=== PATIENT | female | born 1960 | race Caucasian/White ===

== ENCOUNTER → 2020-06-02 08:14 | Outpatient (CLI) | payer BC, SELFPAY ==
--- NOTE | ~2020-06-02 | CT_ITS ---
EXAMINATION: CT lung screening DATE: 06/02/2020 08:39 INDICATION: Personal history of tobacco dependence, current smoker with 30 pack year history TECHNIQUE: Computed tomography (CT) of the chest was performed without intravenous contrast. The dose -length product (DLP) was 136.59 mGy-cm. 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 COMPARISON: 07/16/2018 FINDINGS: There is mild emphysema. No new or suspicious pulmonary nodules are identified. There is no pleural effusion or pneumothorax. No pathologically enlarged thoracic lymph nodes are identified. Th e heart size is normal. There is mild thoracic spondylosis. IMPRESSION: 1. Lung-RADS category 1: Negative. Continue annual screening with noncontrast low-dose chest CT in 12 months. Reviewed, dictated and finalized at location A. IMPRESSION: 1. Lung-RADS category 1: Negative. Continue annual screening with noncontrast l ow-dose chest CT in 12 months.
--- NOTE | ~2020-06-02 | XR_ITS ---
XR foot RT min 3V DATE: 06/02/2020 08:39 INDICATION: Left foot pain, heel pain. No known injury. TECHNIQUE: 4 views COMPARISON: None FINDINGS: Mild plantar calcaneal enthesopathy. Mild distal Achilles tendon calcifications. No fracture, dislocation, periosteal reaction or bone destruction is detected. Os subfibular artery, anatomic variant. Os tibiale externum, normal variant. IMPRESSION: Mild plantar calcaneal enthesopathy Mild distal Achilles tendon calcifications Reviewed, dictated and finalized at location B.
== END ==
PROVIDERS: PCP Internal Medicine; Visit Provider Internal Medicine
DX: Z12.2 Encounter for screening for malignant neoplasm of respiratory organs (principal); Z87.891 Personal history of nicotine dependence; M77.31 Calcaneal spur, right foot
CPT/HCPCS: 73630; G0297

== ENCOUNTER 2020-06-08 08:33 | Outpatient (CLI) | payer BC, SELFPAY ==
--- NOTE | ~2020-06-08 | XR_ITS ---
EXAMINATION: XR UGIAC w barium swallow EXAM DATE: 06/08/2020 09:17 INDICATION: Dysphagia. Neck fullness. TECHNIQUE: Standard single and double contrast barium esophagram and upper GI examination was perform ed. The DAP for this procedure was 1.9 Gycm2. There is no prior study for comparison. FINDINGS: The pharynx is symmetric and without evidence of mass lesion or mucosal irregularity. Ther e is no esophageal stricture, diverticulum or mass identified. Gastroesophageal junction is normal i n appearance. Reflux was not demonstrated during this examination. The stomach has a normal appearance without evidence of mass lesion, ulceration or filling defect. T here is normal rugal fold pattern. The duodenum and duodenal sweep are normal in appearance. IMPRESSION: Normal exam. Reviewed, dictated and finalized at location A. IMPRESSION: Normal exam.
== END 2020-06-08 08:34 | disposition home or self-care (01) ==
PROVIDERS: PCP Internal Medicine; Visit Provider Internal Medicine
DX: R13.10 Dysphagia, unspecified (principal)
CPT/HCPCS: 74246

== ENCOUNTER 2020-06-13 13:31 | Outpatient (CLI) | payer BC, SELFPAY ==
--- NOTE | ~2020-06-13 | US_ITS ---
EXAMINATION: US thyroid DATE: 06/13/2020 14:17 INDICATION: Dysphagia. . TECHNIQUE: Multiple ultrasound images of the thyroid were obtained. COMPARISON: None. FINDINGS: The right thyroid lobe measures 5.8 x 1.7 x 2.0 cm. The left thyroid lobe measures 5.7 x 1.7 x 1.8 c m. Wider than tall 1.5 x 1.1 x 1.3 cm solid hypoechoic nodule with smooth margins and without echoge chantal foci at the inferior left thyroid macro (TI-RADS 4, moderately suspicious , FNA if >=1.5 cm, deepa al followup is >1 cm). There are few additional similar-appearing nodules the next largest measuring 1.1 cm in maximal diameter at the deep left thyroid lobe with several additional subcentimeter nodule s scattered throughout the left and right thyroid lobes. There is normal echotexture, echogenicity an d vascular flow throughout the surrounding thyroid gland. IMPRESSION: 1. Multinodular goiter. The largest 1.5 cm TI RADS 4 nodule at the inferior left thyroid meets consen kendy criteria for ultrasound guided biopsy which would be recommended. Reviewed, dictated and finalized at location A. IMPRESSION: 1. Multinodular goiter. The largest 1.5 cm TI RADS 4 nodule at the inferior lef t thyroid meets consensus criteria for ultrasound guided biopsy which would be recommended.
== END 2020-06-13 13:32 | disposition home or self-care (01) ==
PROVIDERS: PCP Internal Medicine; Visit Provider Internal Medicine
DX: M79.89 Other specified soft tissue disorders (principal); R13.10 Dysphagia, unspecified; E04.2 Nontoxic multinodular goiter
CPT/HCPCS: 76536

== ENCOUNTER 2020-06-29 13:17 | Outpatient (CLI) | payer BC, SELFPAY ==
--- NOTE | ~2020-06-29 | US_ITS ---
EXAMINATION: US FNA w image guidance DATE: 06/29/2020 14:18 INDICATION: Left thyroid nodule. TECHNIQUE: The procedure and its benefits, risks, and benefits were discussed with the patient. Risks specifical ly discussed included bleeding. The patient verbalized understanding of the risks and agreed to proce ed. The neck was prepped and draped in the usual sterile manner. 1% lidocaine was used for local ane sthesia. 5 passes were made with a 25G needle into the lesion. Appropriate needle location was docu mented with continuous sonographic guidance. There were no immediate complications. The patient unde rstood to call the ordering physician for results after a week and a half and verbalized that underst anding. FINDINGS: Grayscale ultrasound images demonstrate needles advanced into a 1.5 cm nodule in inferior left thyroi d lobe for biopsy. IMPRESSION: 1. Ultrasound-guided fine needle aspiration of a left thyroid nodule. Reviewed, dictated and finalized at location A.
== END 2020-06-29 13:18 | disposition home or self-care (01) ==
PROVIDERS: PCP Internal Medicine; Visit Provider Otolaryngology
DX: E04.1 Nontoxic single thyroid nodule (principal)
CPT/HCPCS: 10005; 88173; 88305

== ENCOUNTER 2021-02-05 14:10 | Outpatient (CLI) | payer BC, SELFPAY ==
--- NOTE | ~2021-02-05 | XR_ITS ---
EXAMINATION: XR chest 2V 02/05/2021 14:28 INDICATION: Productive cough PROCEDURE: PA and lateral views of the chest COMPARISON: No prior studies for comparison. FINDINGS: The lungs are clear. The cardiomediastinal silhouette is within normal limits. There are no pleural effusions. There is no pneumothorax suspected. IMPRESSION: 1: NO ACUTE CARDIOPULMONARY DISEASE. Reviewed, dictated and finalized at location B.
== END 2021-02-05 14:11 | disposition home or self-care (01) ==
PROVIDERS: PCP Internal Medicine; Visit Provider Internal Medicine
DX: R05 Cough (principal)
CPT/HCPCS: 71046

== ENCOUNTER 2021-08-06 09:44 | Outpatient (CLI) | payer BC, SELFPAY ==
--- NOTE | ~2021-08-06 | MM_ITS ---
EXAMINATION: MM screening [facility] BI w avis HISTORY: Screening TECHNIQUE: Craniocaudal and mediolateral oblique 3-D tomosynthesis images were obtained and synthetic 2-D images were generated. CAD analysis was submitted and interpreted. COMPARISON: Comparison to multiple prior studies sequentially, with oldest reviewed study dated 11/2012. BREAST PARENCHYMAL COMPOSITION: There are scattered areas of fibroglandular density. FINDINGS: There is no evidence of suspicious mass, calcification, or architectural distortion to sugg est malignancy in either breast. There has been no suspicious interval change. IMPRESSION: 1. No mammographic evidence of malignancy. 2. Recommend routine screening mammography in one year. BI-RADS Category 1: Negative Reviewed, dictated and finalized at location A.
== END 2021-08-06 09:45 | disposition home or self-care (01) ==
LOC: ANHIMG 09:45
PROVIDERS: PCP Internal Medicine; Visit Provider Internal Medicine
DX: Z12.31 Encounter for screening mammogram for malignant neoplasm of breast (principal)
CPT/HCPCS: 77063; 77067

== ENCOUNTER 2022-03-05 14:43 | Outpatient (CLI) | payer BC, SELFPAY ==
--- NOTE | ~2022-03-05 | CT_ITS ---
EXAMINATION: CT lung screening DATE: 03/05/2022 15:01 INDICATION: Personal history of nicotine dependence, current smoker with 30 pack year history TECHNIQUE: Computed tomography (CT) of the chest was performed without intravenous contrast. The dose -length product (DLP) was 96.32 mGy-cm. Automated exposure control and iterative reconstruction techn [employer] were employed. COMPARISON: 06/02/2020 FINDINGS: There is mild emphysema. Scarring is noted in the right lung apex. No suspicious pulmonary nodules are identified. The lungs are free of acute opacities. There is no pleural effusion or pneumo thorax. No pathologically enlarged thoracic lymph nodes are identified. The heart size is normal. The re is mild thoracic spondylosis. IMPRESSION: 1. Lung-RADS category 1: Negative. Continue annual screening with noncontrast low-dose chest CT in 12 months. Reviewed, dictated and finalized at location F. IMPRESSION: 1. Lung-RADS category 1: Negative. Continue annual screening with noncontrast l ow-dose chest CT in 12 months.
== END 2022-03-05 14:44 | disposition home or self-care (01) ==
LOC: ANHIMG 14:47
PROVIDERS: PCP Internal Medicine; Visit Provider Internal Medicine
DX: Z12.2 Encounter for screening for malignant neoplasm of respiratory organs (principal); Z87.891 Personal history of nicotine dependence
CPT/HCPCS: 71271

== ENCOUNTER → 2022-12-10 15:06 | Outpatient (CLI) | payer BC, SELFPAY ==
--- NOTE | ~2022-12-10 | MM_ITS ---
EXAMINATION: MM screening [facility] w avis HISTORY: Screening TECHNIQUE: Craniocaudal and mediolateral oblique 3-D tomosynthesis images were obtained and synthetic 2-D images were generated. CAD analysis was submitted and interpreted. COMPARISON: Comparison to multiple prior studies sequentially, with oldest reviewed study dated 11/2012. BREAST PARENCHYMAL COMPOSITION: There are scattered areas of fibroglandular density. FINDINGS: There is no evidence of suspicious mass, calcification, or architectural distortion to sugg est malignancy in either breast. There has been no suspicious interval change. IMPRESSION: 1. No mammographic evidence of malignancy. 2. Recommend routine screening mammography in one year. BI-RADS Category 1: Negative Reviewed, dictated and finalized at location A. 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
== END ==
PROVIDERS: PCP Internal Medicine; Visit Provider Obstetrics & Gynecology
DX: Z12.31 Encounter for screening mammogram for malignant neoplasm of breast (principal)
CPT/HCPCS: 77063; 77067

== ENCOUNTER → 2023-12-05 09:18 | Outpatient (CLI) | payer BC, SELFPAY ==
--- NOTE | ~2023-12-05 | CT_ITS ---
CT Scan of the Chest without Contrast: Clinical Indication: Lung cancer screening, personal history of nicotine dependence Technique: Contiguous sections were acquired throughout the chest without intravenous contrast. Dose reduction technique was used on this scan by utilizing automated exposure control and iterative recon struction technique. The dose-length product (DLP) was 122.73 mGy-cm. COMPARISON: 03/05/2022 Findings: There is no evidence of any significant mediastinal, hilar or axillary lymphadenopathy. The mediastin al soft tissues appear normal. There is no evidence of pleural or pericardial effusion. The lungs are clear. No pulmonary nodules or infiltrates are noted. Images through the upper abdomen reveal no abnormalities. Impression: Lung RADS 1: Negative. 12 month follow-up screening CT advised. Reviewed, dictated and finalized at location . 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 12 month follow-up screening CT advised.
== END ==
PROVIDERS: PCP Internal Medicine; Visit Provider Internal Medicine
DX: Z12.2 Encounter for screening for malignant neoplasm of respiratory organs (principal); Z87.891 Personal history of nicotine dependence
CPT/HCPCS: 71271

== ENCOUNTER 2024-02-04 08:38 | Outpatient (CLI) | payer BC, SELFPAY ==
--- NOTE | ~2024-02-04 | DEXA_ITS ---
Bone Density Report Name: MK TEAGUE Age: 63 Sex: Female Ethnicity: White Date of : 1960 Indication: postmenopausal; screening for osteoporosis; Referring Provider: MARIE HANKS Study: Bone densitometry was performed. Exam Date: February 04, 2024 Accession number: [id number] Bone Density: Region BMD T-score Z-score Classification AP Spine (L1-L4) 1.068 0.2 1.8 Normal Femoral Neck (Left) 0.757 -0.8 0.6 Normal Total Hip (Left) 0.903 -0.3 0.8 Normal Femoral Neck (Right) 0.701 -1.3 0.1 Osteopenia Total Hip (Right) 0.858 -0.7 0.4 Normal Total Hip Mean 0.881 -0.5 0.6 Normal World Health Organization criteria for BMD impression classify patients as: Normal (T-score at or above -1.0), Osteopenia (T-score between -1.0 and -2.5), or Osteoporosis (T-score at or below -2.5). 10-year Fracture Risk(1): Major Osteoporotic Fracture 8.1% Hip Fracture 0.7% Reported Risk Factors: [place] (), Neck BMD=0.701, BMI=27.5 (1) FRAX(R) Version 3.08. Fracture probability calculated for an untreated patient. Fracture probability may be lower if the patient has received treatment. Clinical Information Provided by Patient: Has used the following medications: Vitamin D Patient maximum height was 67.0 Menopause Age: 50 No regular weight bearing exercise Drinks caffeinated beverages Onset of menses at age 12 Number of children 4 Impression: The patient has low bone mass, based on the Right Femoral Neck T-score. The patient has an estimated ten-year risk of hip fracture of 0.7% and an estimated ten-year risk of major fracture of 8.1%, based on the WHO FRAX algorithm. Discussion: BONE DENSITY IS LOW AT ONE OR MORE SKELETAL SITES. This patient's lowest T-score is low at one or more skeletal sites. It meets the World Health Organization's (WHO) criteria for ?low bone mass? (T-score between -1.0 and -2.5). The patient's 10-year risk of fracture as calculated by FRAX is less than the threshold where pharmacological therapy is recommended by the National Osteoporosis Foundation (NOF). However, all treatment decisions require clinical judgment and consideration of individual patient factors, including patient preferences, comorbidities, previous drug use, risk factors not captured in the FRAX model (e.g., frailty, falls, vitamin D deficiency, increased bone turnover, interval significant decline in bone density) and possible under or overestimation of fracture risk by FRAX. The patient should follow a healthful lifestyle (good nutrition with adequate calcium and vitamin D, and appropriate weight-bearing exercise). Follow-Up: Consider repeating this study in 2 to 3 years to reassess this patient's status, or sooner if there is some new clinical indication. Reported by: CECILIO on 02/04/2024 9:08:00 AM.
== END 2024-02-04 08:39 ==
PROVIDERS: PCP Obstetrics & Gynecology; Visit Provider Internal Medicine
DX: Z78.0 Asymptomatic menopausal state (principal); M85.851 Other specified disorders of bone density and structure, right thigh
CPT/HCPCS: 77080

== ENCOUNTER 2024-08-18 15:19 | Outpatient (CLI) | payer BC, SELFPAY ==
--- NOTE | ~2024-08-18 | CT_ITS ---
EXAMINATION: CT abdomen pelvis w con DATE: 08/18/2024 16:29 INDICATION: Dorsalgia, unspecified. TECHNIQUE: Computed tomography (CT) of the abdomen and pelvis was performed with 100 mL Omnipaque 350 intravenous contrast. Automated exposure control and iterative reconstruction technique were employe d. The dose-length product was 483.04 mGy-cm. COMPARISON: None. FINDINGS: The visualized portions of the lung bases demonstrate mild atelectasis. No pleural effusion . The heart size is normal. No pericardial effusion. There is a 9 mm hypodense mass in the liver, lik justin benign. There is a 6 mm cyst in the liver. The gallbladder, spleen, pancreas, adrenal glands, and kidneys are normal. There are bilateral inguinal hernias containing fat. There is diverticulosis of the colon without evidence of diverticulitis. The appendix is normal. There are no dilated loops of b owel. There is calcified atherosclerosis of the aorta and many of the other arteries. There are no pa thologically enlarged lymph nodes. There is no free intraperitoneal fluid. There is mild thoracic spo ndylosis and moderate lumbar spondylosis. IMPRESSION: 1. No specific etiology for the patient's symptoms. Reviewed, dictated and finalized at location A.
[2024-08-18 15:41] LABS: Basophils Percent Auto 0.3 % (0.2-1.2); Eosinophils Absolute Auto 0.3 K/mm3 (0-0.3); Eosinophils Percent Auto 4.9 % (0-4.4); Hematocrit 45.8 % (37.0-47.0); Hemoglobin 15.3 g/dL (12.0-15.0); Immature Granulocyte Absolute 0.01 K/mm3 (0.00-0.031); Immature Granulocyte Percent A 0.2 % (0-0.5); Lymphocytes Absolute Auto 2.07 K/mm3 (0.9-3.2); Lymphocytes Percent Auto 35.2 % (18.3-44.2); Mean Corpuscular HGB Conc 33.4 g/dl (32-36); Mean Corpuscular Hemoglobin 30.9 pg (26-34); Mean Corpuscular Volume 92.5 fl (80-100); Monocytes Absolute Auto 0.5 K/mm3 (0.1-0.6); Monocytes Percent Auto 8.5 % (2.6-8.5); Neutrophils Percent Auto 50.9 % (45.5-73.1); Platelet Count Result 243 k/mm3 (150-375); Red Blood Count 4.95 M/mm3 (4.2-5.4); Red Cell Distribution Width 12.6 % (11.5-14.5); White Blood Count 5.9 K/mm3 (4.5-10.0)
[2024-08-18 15:45] LABS: Add Urine Microscopic? YES; Appearance Urine Clear (Clear); Bacteria Urine None Seen /hpf; Bilirubin Urine Negative (Negative); Blood Urine Trace (Negative); Color Urine Yellow (Yellow); Glucose Urine UA Negative (Negative); Ketones Urine Negative (Negative); Leukocyte Esterase Ur Negative LEU/UL (Negative); Nitrate Urine Negative (Negative); Non Pathogenic Casts 0-2; Protein Urine Negative (Negative); Specific Grav Ur 1.014 (1.001-1.035); Squamous Epithelial Cell Urine Occasional /hpf (Few); Urobilinogen Urine 0.2 mg/dL (<2.0); WBC Urine 0-5 /hpf (0-3)
[2024-08-18 16:23] LABS: Estimated Glomerular Filt Rate 50
== END 2024-08-18 15:20 | disposition home or self-care (01) ==
LOC: ANHIMG 15:21
PROVIDERS: PCP Internal Medicine; Visit Provider Internal Medicine
DX: R10.31 Right lower quadrant pain (principal); M54.9 Dorsalgia, unspecified
CPT/HCPCS: 36415; 74177; 81001; 85025; Q9967

== ENCOUNTER 2025-04-28 12:39 | Outpatient (CLI) | payer BC, SELFPAY ==
--- NOTE | ~2025-04-28 | MM_ITS ---
EXAMINATION: MM screening [facility] w avis HISTORY: Screening TECHNIQUE: Craniocaudal and mediolateral oblique 3-D tomosynthesis images were obtained and synthetic 2-D images were generated. CAD analysis was submitted and interpreted. COMPARISON: Comparison to multiple prior studies sequentially, with oldest reviewed study dated 05/2017. BREAST PARENCHYMAL COMPOSITION: Not dense: There are scattered areas of fibroglandular density. FINDINGS: There is no evidence of suspicious mass, calcification, or architectural distortion to sugg est malignancy in either breast. There has been no suspicious interval change. IMPRESSION: 1. No mammographic evidence of malignancy. 2. Recommend routine screening mammography in one year. BI-RADS Category 1: Negative Reviewed, dictated and finalized at location A.
== END 2025-04-28 12:40 | disposition home or self-care (01) ==
LOC: MICIMG 12:40
PROVIDERS: PCP Internal Medicine; Visit Provider Obstetrics & Gynecology
DX: Z12.31 Encounter for screening mammogram for malignant neoplasm of breast (principal)
CPT/HCPCS: 77063; 77067

== ENCOUNTER 2025-07-01 11:25 | Outpatient (CLI) | payer BC, SELFPAY ==
--- NOTE | ~2025-07-01 | CT_ITS ---
EXAMINATION: CT lung screening DATE: 07/01/2025 11:37 INDICATION: Personal history of nicotine abuse TECHNIQUE: Computed tomography (CT) of the chest was performed without intravenous contrast. The dose-length product was 111.54 mGy-cm. Automated exposure control and iterative reconstruction technique were employed. COMPARISON: CT dated 12/05/2023 FINDINGS: Heart size normal. No thoracic lymphadenopathy. No significant pleural or pericardial effusion. Upper abdomen is unremarkable. No endobronchial lesions. No pneumothorax. No focal airspace consolidation. No suspicious pulmonary nodules or masses. No significant bone or joint abnormality. There is mild atherosclerosis of the aorta. IMPRESSION: 1. Lung-RADS category 1: Negative. Continue annual screening with noncontrast low-dose chest CT in 12 months. Reviewed, dictated and finalized at location O. IMPRESSION: 1. Lung-RADS category 1: Negative. Continue annual screening with noncontrast l ow-dose chest CT in 12 months.
== END 2025-07-01 11:26 | disposition home or self-care (01) ==
LOC: MICIMG 11:26
PROVIDERS: PCP Internal Medicine; Visit Provider Internal Medicine
DX: Z12.2 Encounter for screening for malignant neoplasm of respiratory organs (principal); Z87.891 Personal history of nicotine dependence
CPT/HCPCS: 71271

== ENCOUNTER 2025-08-19 01:53 | Day surgery (SDC) | payer BC, SELFPAY ==
[2025-08-11 10:42] VITALS: BMI 25.9
[2025-08-19 11:00] VITALS: BP 141/99; PULSE 83; RESP 18; TEMP 36.3; O2SAT 98; BMI 27.3
[2025-08-19] MEDS: LACTATED RINGERS 1,000 ML 150 ML IV CONT (11:09)
--- NOTE | 2025-08-19 11:49 | WPDANESEPPF ---
Anes - Initial Pre Proc Eval Procedure: Operation Date: 08/19/25 12:30 Proposed Procedures p Diagnostic Colonoscopy - Rakan Schumacher MD Date/Time: 08/19/25 11:49 Surgeon: Rakan Schumacher MD Pre Op Diagnosis: Diarrhea, unspecified Patient Data Age: 64 Gender: F Height: 1.7 m Weight: 79.4 kg Last Vital Signs Temp 36.3 C L 08/19/25 11:00 Pulse 83 08/19/25 11:00 Resp 18 08/19/25 11:00 BP 141/99 H 08/19/25 11:00 Pulse Ox 98 08/19/25 11:00 O2 Del Method Room Air 08/19/25 11:00 Allergies Allergy/AdvReac Type Severity Reaction Status Date / Time No Known Allergies Allergy Mild Verified 08/19/25 10:59 Home Medications ?Medication ?Instructions ?Recorded ?Confirmed ?Type ibuprofen-diphenhydramine citrate 1 cap PO ONCE 12/04/20 08/11/25 History 200 mg-38 mg tablet (Advil PM) cholecalciferol (vitamin D3) 75 75 mcg PO DAILY 12/02/22 08/19/25 History mcg (3,000 unit) tablet mecobalamin (vitamin B12) 1,000 1,000 mcg sublingual DAILY 12/24/23 08/19/25 History mcg disintegrating tablet,sublingual cyclobenzaprine 10 mg tablet 10 mg PO TID PRN muscle spasm #30 08/18/24 08/11/25 Rx tabs naproxen sodium 550 mg tablet 550 mg PO Q12H PRN pain #20 tabs 08/18/24 08/11/25 Rx folic acid 1 mg tablet See Rx Instructions .Route 01/24/25 08/19/25 Rx .COMPLEX #90 tabs pantoprazole 40 mg tablet,delayed 40 mg PO QAM #90 tabs 05/02/25 08/19/25 Rx release dicyclomine 10 mg capsule 10 mg PO TID #30 caps 06/28/25 08/19/25 Rx simethicone 500 mg capsule 500 mg PO DAILY PRN gas 06/28/25 08/11/25 History (Phazyme) valacyclovir 500 mg tablet 500 mg PO TID #30 tabs 06/28/25 08/11/25 Rx bupropion HCl 150 mg 24 hr tablet, See Rx Instructions .Route 08/01/25 08/19/25 Rx extended release .COMPLEX #90 tabs atorvastatin 40 mg tablet See Rx Instructions .Route 08/19/25 08/19/25 Rx .COMPLEX #90 tabs Patient hx anesthesia problems: none Family hx anesthesia problems: none Results Review: All pre-operative results and documents have been reviewed as part of the pre-operative evaluation. [facility] Past Medical History Medical History Abdominal pain Breast cancer screening Right-sided back pain Pre-diabetes Constipation Post-menopausal BMI 26.0-26.9,adult BPPV (benign paroxysmal positional vertigo) H/O elevated homocysteine Nicotine dependence Weight gain Sore throat Right flank pain Primary osteoarthritis involving multiple joints Hypersomnolence Dyslipidemia Skin tag Stress Tobacco abuse Bronchopneumonia Multinodular goiter Vitamin D deficiency Achilles tendonitis Heel pain Fullness of neck Dysphagia BMI 27.0-27.9,adult Colon cancer screening Personal history of nicotine dependence BMI 28.0-28.9,adult Encounter for routine adult health examination without abnormal findings On mcfp drug therapy Hyperlipidemia GERD (gastroesophageal reflux disease) Elevated homocysteine Cervicalgia Social History Social History Years smoked: 35 Smoking status: Former smoker Second hand tobacco smoke exposure: No Alcohol intake: current Lack of Transportation: No Lack of Food: Never True Current Housing: I Have Housing Concerned About Future Housing: No Difficulty Paying Gas/Electric Bills: No Difficulty Paying for Meds: No Currently Unemployed: No Education: High School Diploma/GED Difficulty w/ Childcare or Family Care: No Living arrangements: with family Occupation/Education: occupation Gender identity (if verbalized by the patient): Female Anes - Eval Final PreProcedure Day of Procedure 08/19/25 11:49 Patient weight: overweight Heart: regular rate and rhythm Lungs: clear to auscultation Airway: Mallampati scale class II Neurological: alert and oriented Last oral intake: >/= 8 hours ASA classification: II Emergent: no Anesthetic plan: proceed Anesthesia type and monitoring: general GIVS and standard monitoring Results Review: All pre-operative results and documents have been reviewed as part of the pre-operative evaluation. Informed Consent: The patient's anesthetic plan and its attendant risks and benefits were discussed with the patient/family/POA. Questions were solicited and answers provided to the satisfaction of the patient/family/POA.
--- NOTE | 2025-08-19 12:18 | PM.HPGS ---
History of Present Illness History of Present Illness Consent: Risks, benefits, and alternatives have been discussed and questions answered. Patient agrees to proceed with procedure. Chief complaint: Diarrhea, unspecified Narrative: Charity Farrell is a 64 year old female here for colonoscopy, change in bowel habits with smaller size stool and 1-2 times a month will have episode of diarrhea with nausea, last colonoscopy 2017 Review of Systems Review of Systems: All systems reviewed & are unremarkable except as noted in HPI and below PMFSH Past Medical History Medical History Abdominal pain Breast cancer screening Right-sided back pain Pre-diabetes Constipation Post-menopausal BMI 26.0-26.9,adult BPPV (benign paroxysmal positional vertigo) H/O elevated homocysteine Nicotine dependence Weight gain Sore throat Right flank pain Primary osteoarthritis involving multiple joints Hypersomnolence Dyslipidemia Skin tag Stress Tobacco abuse Bronchopneumonia Multinodular goiter Vitamin D deficiency Achilles tendonitis Heel pain Fullness of neck Dysphagia BMI 27.0-27.9,adult Colon cancer screening Personal history of nicotine dependence BMI 28.0-28.9,adult Encounter for routine adult health examination without abnormal findings On flagman drug therapy Hyperlipidemia GERD (gastroesophageal reflux disease) Elevated homocysteine Cervicalgia Social History Social History Years smoked: 35 Smoking status: Former smoker Second hand tobacco smoke exposure: No Alcohol intake: current Lack of Transportation: No Lack of Food: Never True Current Housing: I Have Housing Concerned About Future Housing: No Difficulty Paying Gas/Electric Bills: No Difficulty Paying for Meds: No Currently Unemployed: No Education: High School Diploma/GED Difficulty w/ Childcare or Family Care: No Living arrangements: with family Occupation/Education: occupation Gender identity (if verbalized by the patient): Female Meds Home Medications and Allergies Home Medications ?Medication ?Instructions ?Recorded ?Confirmed ?Type ibuprofen-diphenhydramine citrate 1 cap PO ONCE 12/04/20 08/11/25 History 200 mg-38 mg tablet (Advil PM) cholecalciferol (vitamin D3) 75 75 mcg PO DAILY 12/02/22 08/19/25 History mcg (3,000 unit) tablet mecobalamin (vitamin B12) 1,000 1,000 mcg sublingual DAILY 12/24/23 08/19/25 History mcg disintegrating tablet,sublingual cyclobenzaprine 10 mg tablet 10 mg PO TID PRN muscle spasm #30 08/18/24 08/11/25 Rx tabs naproxen sodium 550 mg tablet 550 mg PO Q12H PRN pain #20 tabs 08/18/24 08/11/25 Rx folic acid 1 mg tablet See Rx Instructions .Route 01/24/25 08/19/25 Rx .COMPLEX #90 tabs pantoprazole 40 mg tablet,delayed 40 mg PO QAM #90 tabs 05/02/25 08/19/25 Rx release dicyclomine 10 mg capsule 10 mg PO TID #30 caps 06/28/25 08/19/25 Rx simethicone 500 mg capsule 500 mg PO DAILY PRN gas 06/28/25 08/11/25 History (Phazyme) valacyclovir 500 mg tablet 500 mg PO TID #30 tabs 06/28/25 08/11/25 Rx bupropion HCl 150 mg 24 hr tablet, See Rx Instructions .Route 08/01/25 08/19/25 Rx extended release .COMPLEX #90 tabs atorvastatin 40 mg tablet See Rx Instructions .Route 08/19/25 08/19/25 Rx .COMPLEX #90 tabs Allergies Allergy/AdvReac Type Severity Reaction Status Date / Time No Known Allergies Allergy Mild Verified 08/19/25 10:59 Vital Signs Vital Signs - 24 hr 08/19/25 11:00 Temperature 97.4 F L Pulse Rate 83 Respiratory Rate 18 Blood Pressure 141/99 H Pulse Oximetry 98 Oxygen Delivery Room Air Exam Const: General: comfortable and no acute distress HENMT: Face/Nose/Sinus: Normal nares present Eyes: General: appearance normal, both eyes and all related structures Neck: Neck: no JVD Resp: Auscultation: clear to auscultation bilaterally Cardio: Rate: regular rate Rhythm: regular rhythm GI: Inspection: non-distended GI Palp: Yes Soft to palpation Skin: General skin exam: normal color Extrem: General: normal to inspection Psych: Mental Status: mental status grossly normal Assessment and Plan Assessment and plan (1) Change in bowel habits: Code(s): R19.4 - Change in bowel habit Status: Acute Assessment and Plan: colonoscopy
--- NOTE | 2025-08-19 12:31 | S_PTH ---
PATIENT: Charity Farrell LOC: [facility]#:[id number] AGE/SX: 64/F ROOM: RE08/19/[address]: Rakan Schumacher MD : 1960 BED: DIS: 08/19/2025 SPEC #: [id number] RECD: 08/19/25 12:41 STATUS: ENEDELIA REQ #: [id number] RAMO: 08/19/25 12:[address]: Rakan Schumacher DEPT: [facility] Surgical RECD BY: Estelita Loyola ENTERED: 08/19/25 12:42 SP TYPE: Surgical OTHR DR: Velasquez Milian MD Tissues: A - Colon Biopsy Procedures: Hematoxylin and Eosin Stain Gross and Microscopic Level 4
[2025-08-19 12:34] VITALS: BP 117/74; PULSE 74; RESP 23; O2SAT 98
[2025-08-19 12:44] VITALS: BP 110/76; PULSE 68; RESP 23; O2SAT 99
[2025-08-19 12:54] VITALS: BP 130/80; PULSE 61; RESP 21; O2SAT 100
== END 2025-08-19 13:05 | disposition home or self-care (01) ==
PROVIDERS: PCP Internal Medicine; Referring Provider Internal Medicine; Visit Provider Internal Medicine Gastroenterology
PROC: 0DJD8ZZ Inspection of Lower Intestinal Tract, Via Natural or Artificial Opening Endoscopic (ICD-10-PCS; CPT 45378; principal; 2025-08-19 12:30)
DX: K64.8 Other hemorrhoids (principal); K57.30 Diverticulosis of large intestine without perforation or abscess without bleeding; E78.5 Hyperlipidemia, unspecified; E55.9 Vitamin D deficiency, unspecified; K21.9 Gastro-esophageal reflux disease without esophagitis; R73.03 Prediabetes; M15.9 Polyosteoarthritis, unspecified; G47.10 Hypersomnia, unspecified; Z79.1 Long term (current) use of non-steroidal anti-inflammatories (NSAID); Z79.899 Other long term (current) drug therapy; Z87.891 Personal history of nicotine dependence
CPT/HCPCS: 45380; 88305; J2704; J7120

== ENCOUNTER 2025-09-19 09:09 | Outpatient (CLI) | payer BC, MEDICARE, SELFPAY ==
--- NOTE | ~2025-09-19 | XR_ITS ---
EXAM/PROCEDURE: XR UGIAC wo kub HISTORY: R13.10 - Dysphagia, unspecified COMPARISON: June 08, 2020 TECHNIQUE: Air contrast upper GI performed. FLUOROSCOPY TIME: 2.5 minutes DOSE: 56.312 g/sq cm Number images: 28 NOTE: Exam somewhat limited by suboptimal distention of the stomach and nondiagnostic images of the duodenal bulb. FINDINGS: Tertiary contractions noted in the esophagus. Small hiatal hernia noted. 1.3 cm barium pill passed through the esophagus uneventfully. Stomach and esophagus as well as proximal portion of the duodenum otherwise unremarkable given limitations discussed above. IMPRESSION: Small hiatal hernia with tertiary contractions suggestive of esophagitis. Exam is limited as noted above. Consider correlation with [facility] for complete evaluation. Reviewed, dictated and finalized at location A. N RESOURCES TRAINING MANAGER IMPRESSION: Small hiatal hernia with tertiary contractions suggestive of esopha gitis. Exam is limited as noted above. Consider correlation with [facility] for comple te evaluation.
--- OUTSIDE RECORDS SUMMARY | 2025-09-19 09:40 | XMS_ITS | Clinical Summary ---
Author Organization [facility] Health Address [address] [place] [address] Care Team Providers Care Char Filter Operator Name Role Phone Unavailable Primary Care Provider Unavailabl e Medications atorvastatin (LIPITOR) 20 mg tablet Take 20 mg by mouth 1 (one) time each day. 12/23/2023 Active buPROPion XL (WELLBUTRIN XL) 150 mg 24 hr tablet Take 150 mg by mouth every morning. 10/20/2023 Active folic acid (FOLVITE) 1 mg tablet Take 1,000 mcg by mouth 1 (one) time each day. 11/05/2023 Active Active Problems No known active problems Social History Tobacco Use Types Packs/Day Years Used Date Smoking Tobacco: Never Assessed Comments Unknown Sex and Gender Information Value Date Recorded Sex Assigned at Not on file Legal Sex Female 6:55 AM PST Gender Identity Not on file Sexual Orientation Not on file Plan of Treatment Health Maintenance Due Date Last Done Comments Dental Prophylaxis 1960 Dental Oral Exam 07/19/2024 01/16/2024 Dental X-Ray: Bitewings 07/19/2024 01/16/2024 Dental X-Ray: Full Mouth 01/16/2027 01/16/2024 Dental X-Ray: Panoramic 01/16/2027 01/16/2024 Procedures Procedure Name Priority Date/Time Associated Diagnosis Comments PANORAMIC RADIOGRAPHIC IMAGE Routine 01/16/2024 9:00 AM PATIENT ASSESSMENT COORDINATOR INTRAORAL - COMPREHENSIVE SERIES OF RADIOGRAPHIC IMAGES Routine 01/16/2024 9:00 AM PATIENT ASSESSMENT COORDINATOR COMPREHENSIVE ORAL EVALUATION - NEW OR ESTABLISHED PATIENT Routine 01/16/2024 9:00 AM PATIENT ASSESSMENT COORDINATOR Encounter for dental examination and cleaning without abnormal findings from Last 3 Months or Most Recently Relevant to Health Maintenance Insurance [facility] FEDERAL [facility] [place] FEDERAL
--- OUTSIDE RECORDS SUMMARY | 2025-09-19 09:40 | XMS_ITS | Encounter Summary ---
Author Organization [facility] Health Address [address] [place] [address] Care Team Providers Care Adobe Flex Developer Name Role Phone Unavailable Primary Care Provider Unavailabl e Prior Encounters Date Type Department Care Team Description 01/16/2024 9:00 AM RESEARCH INTERN Office Visit [facility] [address] [place] [address] Roxy Dalal, ZACHARYS Encounter for dental examination and cleaning without abnormal findings (Primary Dx) Plan of Treatment Not on file Procedures Procedure Name Priority Date/Time Associated Diagnosis Comments INTRAORAL PHOTO Routine 01/16/2024 9:00 AM RESEARCH INTERN INTRAORAL PHOTO Routine 01/16/2024 9:00 AM RESEARCH INTERN PANORAMIC RADIOGRAPHIC IMAGE Routine 01/16/2024 9:00 AM RESEARCH INTERN COMPREHENSIVE ORAL EVALUATION - NEW OR ESTABLISHED PATIENT Routine 01/16/2024 9:00 AM RESEARCH INTERN Encounter for dental examination and cleaning without abnormal findings INTRAORAL PHOTO Routine 01/16/2024 9:00 AM RESEARCH INTERN INTRAORAL - COMPREHENSIVE SERIES OF RADIOGRAPHIC IMAGES Routine 01/16/2024 9:00 AM RESEARCH INTERN INTRAORAL PHOTO Routine 01/16/2024 9:00 AM RESEARCH INTERN 29 ZIRCONIA CROWN Routine 01/16/2024 12: 00 AM RESEARCH INTERN 30 ZIRCONIA CROWN Routine 01/16/2024 12: 00 AM RESEARCH INTERN 15 ZIRCONIA CROWN Routine 01/16/2024 12: 00 AM RESEARCH INTERN 14 ZIRCONIA CROWN Routine 01/16/2024 12: 00 AM RESEARCH INTERN 13 ZIRCONIA CROWN Routine 01/16/2024 12: 00 AM RESEARCH INTERN 12 ZIRCONIA CROWN Routine 01/16/2024 12: 00 AM RESEARCH INTERN 10 ZIRCONIA CROWN Routine 01/16/2024 12: 00 AM RESEARCH INTERN 9 ZIRCONIA CROWN Routine 01/16/2024 12:0 0 AM RESEARCH INTERN 8 ZIRCONIA CROWN Routine 01/16/2024 12:0 0 AM RESEARCH INTERN 7 ZIRCONIA CROWN Routine 01/16/2024 12:0 0 AM RESEARCH INTERN 6 ZIRCONIA CROWN Routine 01/16/2024 12:0 0 AM RESEARCH INTERN 5 ZIRCONIA CROWN Routine 01/16/2024 12:0 0 AM RESEARCH INTERN 4 ZIRCONIA CROWN Routine 01/16/2024 12:0 0 AM RESEARCH INTERN 3 ZIRCONIA CROWN Routine 01/16/2024 12:0 0 AM RESEARCH INTERN Visit Diagnoses Diagnosis Start Date Encounter for dental examination and cleaning without abnormal findings 01/16/[address] [facility] FEDERAL [facility] [place] [facility] [place] FEDERAL
== END 2025-09-19 09:10 | disposition home or self-care (01) ==
PROVIDERS: PCP Internal Medicine; Visit Provider Internal Medicine
DX: K21.9 Gastro-esophageal reflux disease without esophagitis (principal); K44.9 Diaphragmatic hernia without obstruction or gangrene
CPT/HCPCS: 74246

== ENCOUNTER 2025-09-27 01:58 | Day surgery (SDC) | payer BC, MEDICARE, SELFPAY ==
[2025-09-26 12:10] VITALS: BMI 27.6
[2025-09-27 11:53] VITALS: BP 163/86; PULSE 75; RESP 20; TEMP 36.4; O2SAT 96
[2025-09-27] MEDS: LACTATED RINGERS 1,000 ML 150 ML IV CONT (12:02)
--- NOTE | 2025-09-27 12:22 | PM.HPGS ---
History of Present Illness History of Present Illness Consent: Risks, benefits, and alternatives have been discussed and questions answered. Patient agrees to proceed with procedure. Chief complaint: Dysphagia, unspecified Narrative: Charity Farrell is a 65 year old female with gerd and chest discomfort, ugi showed small hiatal hernia and tertiary contractions of esophagus, never had egd Review of Systems Review of Systems: All systems reviewed & are unremarkable except as noted in HPI and below PMFSH Past Medical History Medical History Abdominal pain Achilles tendonitis BMI 26.0-26.9,adult BMI 27.0-27.9,adult BMI 28.0-28.9,adult BPPV (benign paroxysmal positional vertigo) Breast cancer screening Bronchopneumonia Cervicalgia Colon cancer screening Constipation Dyslipidemia Dysphagia Elevated homocysteine Encounter for routine adult health examination without abnormal findings Fullness of neck GERD (gastroesophageal reflux disease) H/O elevated homocysteine Heel pain Hyperlipidemia Hypersomnolence Multinodular goiter Nicotine dependence 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 Personal history of nicotine dependence Post-menopausal Pre-diabetes Primary osteoarthritis involving multiple joints Right flank pain Right-sided back pain Skin tag Sore throat Stress Tobacco abuse Vitamin D deficiency Weight gain Social History Social History Years smoked: 35 Smoking status: Former smoker Tobacco type: cigarettes Second hand tobacco smoke exposure: No Alcohol intake: current Substance use type: does not use Lack of Transportation: No Lack of Food: Never True Current Housing: I Have Housing Concerned About Future Housing: No Difficulty Paying Gas/Electric Bills: No Difficulty Paying for Meds: No Currently Unemployed: No Education: High School Diploma/GED Difficulty w/ Childcare or Family Care: No Living arrangements: with family Occupation/Education: occupation Gender identity (if verbalized by the patient): Female Spiritual care concerns: No Meds Home Medications and Allergies Home Medications ?Medication ?Instructions ?Recorded ?Confirmed ?Type ibuprofen-diphenhydramine citrate 1 cap PO ONCE 12/04/20 09/27/25 History 200 mg-38 mg tablet (Advil PM) cholecalciferol (vitamin D3) 75 75 mcg PO DAILY 12/02/22 09/27/25 History mcg (3,000 unit) tablet mecobalamin (vitamin B12) 1,000 1,000 mcg sublingual DAILY 12/24/23 09/27/25 History mcg disintegrating tablet,sublingual cyclobenzaprine 10 mg tablet 10 mg PO TID PRN muscle spasm #30 08/18/24 09/26/25 Rx tabs naproxen sodium 550 mg tablet 550 mg PO Q12H PRN pain #20 tabs 08/18/24 09/26/25 Rx folic acid 1 mg tablet See Rx Instructions .Route 01/24/25 09/27/25 Rx .COMPLEX #90 tabs pantoprazole 40 mg tablet,delayed 40 mg PO QAM #90 tabs 05/02/25 09/27/25 Rx release dicyclomine 10 mg capsule 10 mg PO TID #30 caps 06/28/25 09/27/25 Rx simethicone 500 mg capsule 500 mg PO DAILY PRN gas 06/28/25 09/26/25 History (Phazyme) valacyclovir 500 mg tablet 500 mg PO TID #30 tabs 06/28/25 09/27/25 Rx bupropion HCl 150 mg 24 hr tablet, See Rx Instructions .Route 08/01/25 09/27/25 Rx extended release .COMPLEX #90 tabs atorvastatin 40 mg tablet See Rx Instructions .Route 08/19/25 09/27/25 Rx .COMPLEX #90 tabs Allergies Allergy/AdvReac Type Severity Reaction Status Date / Time No Known Allergies Allergy Mild Verified 09/27/25 11:49 Vital Signs Vital Signs - 24 hr 09/27/25 11:53 Temperature 97.6 F Pulse Rate 75 Respiratory Rate 20 Blood Pressure 163/86 H Pulse Oximetry 96 Oxygen Delivery Room Air Exam Const: General: comfortable and no acute distress HENMT: Face/Nose/Sinus: Normal nares present Eyes: General: appearance normal, both eyes and all related structures Resp: Auscultation: clear to auscultation bilaterally Cardio: Rate: regular rate Rhythm: regular rhythm GI: Inspection: non-distended GI Palp: Yes Soft to palpation Skin: General skin exam: normal color Extrem: General: normal to inspection Psych: Mental Status: mental status grossly normal Assessment and Plan Assessment and plan (1) GERD (gastroesophageal reflux disease): Qualifiers: Esophagitis presence: without esophagitis Qualified Code(s): K21.9 - Gastro-esophageal reflux disease without esophagitis Code(s): K21.9 - Gastro-esophageal reflux disease without esophagitis Status: Acute Assessment and Plan: egd
--- NOTE | 2025-09-27 12:26 | WPDANESEPPF ---
Anes - Initial Pre Proc Eval Procedure: Operation Date: 09/27/25 12:30 Proposed Procedures p Esophagogastroduodenoscopy - Rakan Schumacher MD Date/Time: 09/27/25 12:26 Surgeon: Rakan Schumacher MD Pre Op Diagnosis: Dysphagia, unspecified Patient Data Age: 65 Gender: F Height: 1.7 m Weight: 82.5 kg Last Vital Signs Temp 97.6 F 09/27/25 11:53 Pulse 75 09/27/25 11:53 Resp 20 09/27/25 11:53 BP 163/86 H 09/27/25 11:53 Pulse Ox 96 09/27/25 11:53 O2 Del Method Room Air 09/27/25 11:53 Allergies Allergy/AdvReac Type Severity Reaction Status Date / Time No Known Allergies Allergy Mild Verified 09/27/25 11:49 Home Medications ?Medication ?Instructions ?Recorded ?Confirmed ?Type ibuprofen-diphenhydramine citrate 1 cap PO ONCE 12/04/20 09/27/25 History 200 mg-38 mg tablet (Advil PM) cholecalciferol (vitamin D3) 75 75 mcg PO DAILY 12/02/22 09/27/25 History mcg (3,000 unit) tablet mecobalamin (vitamin B12) 1,000 1,000 mcg sublingual DAILY 12/24/23 09/27/25 History mcg disintegrating tablet,sublingual cyclobenzaprine 10 mg tablet 10 mg PO TID PRN muscle spasm #30 08/18/24 09/26/25 Rx tabs naproxen sodium 550 mg tablet 550 mg PO Q12H PRN pain #20 tabs 08/18/24 09/26/25 Rx folic acid 1 mg tablet See Rx Instructions .Route 01/24/25 09/27/25 Rx .COMPLEX #90 tabs pantoprazole 40 mg tablet,delayed 40 mg PO QAM #90 tabs 05/02/25 09/27/25 Rx release dicyclomine 10 mg capsule 10 mg PO TID #30 caps 06/28/25 09/27/25 Rx simethicone 500 mg capsule 500 mg PO DAILY PRN gas 06/28/25 09/26/25 History (Phazyme) valacyclovir 500 mg tablet 500 mg PO TID #30 tabs 06/28/25 09/27/25 Rx bupropion HCl 150 mg 24 hr tablet, See Rx Instructions .Route 08/01/25 09/27/25 Rx extended release .COMPLEX #90 tabs atorvastatin 40 mg tablet See Rx Instructions .Route 08/19/25 09/27/25 Rx .COMPLEX #90 tabs Patient hx anesthesia problems: none Family hx anesthesia problems: none Results Review: All pre-operative results and documents have been reviewed as part of the pre-operative evaluation. [facility] Past Medical History Medical History Abdominal pain Breast cancer screening Right-sided back pain Pre-diabetes Constipation Post-menopausal BMI 26.0-26.9,adult BPPV (benign paroxysmal positional vertigo) H/O elevated homocysteine Nicotine dependence Weight gain Sore throat Right flank pain Primary osteoarthritis involving multiple joints Hypersomnolence Dyslipidemia Skin tag Stress Tobacco abuse Bronchopneumonia Multinodular goiter Vitamin D deficiency Achilles tendonitis Heel pain Fullness of neck Dysphagia BMI 27.0-27.9,adult Colon cancer screening Personal history of nicotine dependence BMI 28.0-28.9,adult Encounter for routine adult health examination without abnormal findings 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 Hyperlipidemia GERD (gastroesophageal reflux disease) Elevated homocysteine Cervicalgia Social History Social History Years smoked: 35 Smoking status: Former smoker Tobacco type: cigarettes Second hand tobacco smoke exposure: No Alcohol intake: current Substance use type: does not use Lack of Transportation: No Lack of Food: Never True Current Housing: I Have Housing Concerned About Future Housing: No Difficulty Paying Gas/Electric Bills: No Difficulty Paying for Meds: No Currently Unemployed: No Education: High School Diploma/GED Difficulty w/ Childcare or Family Care: No Living arrangements: with family Occupation/Education: occupation Gender identity (if verbalized by the patient): Female Spiritual care concerns: No Anes - Eval Final PreProcedure Day of Procedure 09/27/25 12:26 Patient weight: overweight Lungs: normal air movement Airway: Mallampati scale class II Neurological: alert and oriented Last oral intake: >/= 8 hours ASA classification: II Emergent: no Anesthetic plan: proceed Anesthesia type and monitoring: general GIVS and standard monitoring Results Review: All pre-operative results and documents have been reviewed as part of the pre-operative evaluation. Hyperlipidemia. Informed Consent: The patient's anesthetic plan and its attendant risks and benefits were discussed with the patient/family/POA. Questions were solicited and answers provided to the satisfaction of the patient/family/POA.
--- NOTE | 2025-09-27 12:37 | S_PTH ---
PATIENT: Charity Farrell LOC: [facility]#:[id number] AGE/SX: 65/F ROOM: RE09/27/[address]: Rakan Schumacher MD : 1960 BED: DIS: 09/27/2025 SPEC #: [id number] RECD: 09/27/25 13:07 STATUS: ENEDELIA REDwight #: [id number] RAMO: 09/27/25 12:[address]: Rakan Schumacher DEPT: [facility] Surgical RECD BY: Estelita Loyola ENTERED: 09/27/25 13:07 SP TYPE: Surgical OTHR DR: Velasquez Milian MD Tissues: A - Gastric Biopsy B - Esophageal Biopsy Procedures: Hematoxylin and Eosin Stain Gross and Microscopic Level 4
[2025-09-27 12:42] VITALS: BP 122/76; PULSE 90; RESP 20; O2SAT 95
[2025-09-27 12:52] VITALS: BP 145/77; PULSE 70; RESP 16; O2SAT 98
[2025-09-27 13:02] VITALS: BP 148/78; PULSE 62; RESP 20; O2SAT 100
== END 2025-09-27 13:15 | disposition home or self-care (01) ==
PROVIDERS: PCP Internal Medicine; Referring Provider Internal Medicine; Visit Provider Internal Medicine Gastroenterology
PROC: 0DJ08ZZ Inspection of Upper Intestinal Tract, Via Natural or Artificial Opening Endoscopic (ICD-10-PCS; CPT 43239; principal; 2025-09-27 12:30)
DX: K21.9 Gastro-esophageal reflux disease without esophagitis (principal); K44.9 Diaphragmatic hernia without obstruction or gangrene; Z87.891 Personal history of nicotine dependence
CPT/HCPCS: 43239; 88305; J2003; J2704; J7120